=== PATIENT | female | born 1965 | race Caucasian/White ===

== ENCOUNTER 2017-06-16 09:48 | Emergency (ER) | payer MEDICAID, OTHER ==
[~2017-06-16] VITALS: Wt 53.5 kg
[2017-06-16] MEDS ORDERED: AMOX1TAB10 PO (11:09)
[2017-06-16] MEDS ORDERED: HYDR-906 PO (11:09)
[2017-06-16] MEDS ORDERED: CEFTRIAXONE 1 GM INJ IM ONE (11:30)
[2017-06-16] MEDS ORDERED: LIDOCAINE 1% (MDV) 20 ML INJ SC ONE (11:30)
--- NOTE | 2017-07-09 23:49 | ERD ---
ER Documentation Chief Complaint Chief Complaint toothache HPI 51-year-old female complaining of toothache 1 week. Patient states that she is having pain along the jawline is not improving. Denies fever. Denies trouble swallowing. Has not been seen by dentist. Is not taking medications for symptoms. ROS All systems reviewed and are negative except as per history of present illness. Medications Home Meds Active Scripts Hydrocodone/Acetaminophen ([place] 5-325 Tablet) 1 Each Tablet, 1 TAB PO Q6H Y for PAIN, #7 TAB Prov:VANNESSA MADRIGAL PA-C 06/16/17 Amoxicillin/Potassium Clav (Amox-Clav 875-125 mg Tablet) 875-125 mg Tab, 1 TAB PO BID for 7 Days, #14 TAB Prov:VANNESSA MADRIGAL PA-C 06/16/17 Allergies Allergies: Coded Allergies: No Known Allergy (Unverified , 06/16/17) PMhx/Soc Medical and Surgical Hx: pt denies Medical Hx, pt denies Surgical Hx History of Surgery: No Anesthesia Reaction: No Hx Neurological Disorder: No Hx Respiratory Disorders: No Hx Cardiac Disorders: No Hx Psychiatric Problems: No Hx Miscellaneous Medical Probl: No (PT DENIES M/S HX) Hx Alcohol Use: No Hx Substance Use: No Hx Tobacco Use: No Smoking Status: Never smoker Physical Exam Physical Exam GENERAL: The patient is well-appearing, well-nourished, in no acute distress HEENT: Atraumatic. Conjunctivae are pink. Pupils equal, round, and reactive to light. There is no scleral icterus. Tympanic membranes clear bilaterally. Oropharynx clear. No nystagmus or photophobia. Poor dentition throughout. No obvious gum abscess. NECK: C-spine is soft and supple. There is no meningismus. There is no cervical lymphadenopathy. CHEST: Clear to auscultation bilaterally. There are no rales, wheezes or rhonchi. HEART: Regular rate and rhythm. No murmurs, clicks, rubs or gallops. No S3 or S4. Results 24 hrs Current Medications Medications (Trade) Dose Ordered Sig/Frantz Route PRN Reason Start Time Stop Time Status Last Admin Dose Admin Ceftriaxone Sodium (Rocephin) 1 gm ONCE ONCE IM 06/16/17 11:30 06/16/17 11:31 DC 06/16/17 11:36 Lidocaine (Xylocaine 1% (Mdv) 20 ml) 20 ml ONCE ONCE SC 06/16/17 11:30 06/16/17 11:31 DC 06/16/17 11:36 Procedures/MDM MDM: I have low suspicion for deep tracking abscess. Patient does have concerning signs for possible dental abscess by do not feel that there is indication for incision and drainage at this time. Patient's airway is patent and does not appear to be compromised. Patient's vital signs are stable. Patient be discharged with oral antibiotics and pain medication. Patient is told to follow-up with dentist within the next 1-2 days for close evaluation. All questions answered at discharge. Patient was discharged with strict ER precautions. Departure Diagnosis: Primary Impression: Toothache Condition: Stable Patient Instructions: Dental Pain Referrals: [facility] DENT[facility] ([facility] walk in clinic) Additional Instructions: FOLLOW UP WITH YOUR PRIMARY CARE PHYSICIAN TOMORROW.Return to this facility if you are not improving as expected. VANNESSA MADRIGAL PA-C Jul 09, 2017 23:49
--- NOTE | 2017-07-09 23:49 | ERD ---
ER Documentation Chief Complaint Chief Complaint toothache HPI 51-year-old female complaining of toothache 1 week. Patient states that she is having pain along the jawline is not improving. Denies fever. Denies trouble swallowing. Has not been seen by dentist. Is not taking medications for symptoms. ROS All systems reviewed and are negative except as per history of present illness. Medications Home Meds Active Scripts Hydrocodone/Acetaminophen ([place] 5-325 Tablet) 1 Each Tablet, 1 TAB PO Q6H Y for PAIN, #7 TAB Prov:VANNESSA MADRIGAL PA-C 06/16/17 Amoxicillin/Potassium Clav (Amox-Clav 875-125 mg Tablet) 875-125 mg Tab, 1 TAB PO BID for 7 Days, #14 TAB Prov:VANNESSA MADRIGAL PA-C 06/16/17 Allergies Allergies: Coded Allergies: No Known Allergy (Unverified , 06/16/17) PMhx/Soc Medical and Surgical Hx: pt denies Medical Hx, pt denies Surgical Hx History of Surgery: No Anesthesia Reaction: No Hx Neurological Disorder: No Hx Respiratory Disorders: No Hx Cardiac Disorders: No Hx Psychiatric Problems: No Hx Miscellaneous Medical Probl: No (PT DENIES M/S HX) Hx Alcohol Use: No Hx Substance Use: No Hx Tobacco Use: No Smoking Status: Never smoker Physical Exam Physical Exam GENERAL: The patient is well-appearing, well-nourished, in no acute distress HEENT: Atraumatic. Conjunctivae are pink. Pupils equal, round, and reactive to light. There is no scleral icterus. Tympanic membranes clear bilaterally. Oropharynx clear. No nystagmus or photophobia. Poor dentition throughout. No obvious gum abscess. NECK: C-spine is soft and supple. There is no meningismus. There is no cervical lymphadenopathy. CHEST: Clear to auscultation bilaterally. There are no rales, wheezes or rhonchi. HEART: Regular rate and rhythm. No murmurs, clicks, rubs or gallops. No S3 or S4. Results 24 hrs Current Medications Medications (Trade) Dose Ordered Sig/Frantz Route PRN Reason Start Time Stop Time Status Last Admin Dose Admin Ceftriaxone Sodium (Rocephin) 1 gm ONCE ONCE IM 06/16/17 11:30 06/16/17 11:31 DC 06/16/17 11:36 Lidocaine (Xylocaine 1% (Mdv) 20 ml) 20 ml ONCE ONCE SC 06/16/17 11:30 06/16/17 11:31 DC 06/16/17 11:36 Procedures/MDM MDM: I have low suspicion for deep tracking abscess. Patient does have concerning signs for possible dental abscess by do not feel that there is indication for incision and drainage at this time. Patient's airway is patent and does not appear to be compromised. Patient's vital signs are stable. Patient be discharged with oral antibiotics and pain medication. Patient is told to follow-up with dentist within the next 1-2 days for close evaluation. All questions answered at discharge. Patient was discharged with strict ER precautions. Departure Diagnosis: Primary Impression: Toothache Condition: Stable Patient Instructions: Dental Pain Referrals: [facility] DENT[facility] ([facility] walk in clinic) Additional Instructions: FOLLOW UP WITH YOUR PRIMARY CARE PHYSICIAN TOMORROW.Return to this facility if you are not improving as expected. VANNESSA MADRIGAL PA-C Jul 09, 2017 23:49
--- NOTE | 2017-07-09 23:49 | ERD ---
ER Documentation Chief Complaint Chief Complaint toothache HPI 51-year-old female complaining of toothache 1 week. Patient states that she is having pain along the jawline is not improving. Denies fever. Denies trouble swallowing. Has not been seen by dentist. Is not taking medications for symptoms. ROS All systems reviewed and are negative except as per history of present illness. Medications Home Meds Active Scripts Hydrocodone/Acetaminophen ([place] 5-325 Tablet) 1 Each Tablet, 1 TAB PO Q6H Y for PAIN, #7 TAB Prov:VANNESSA MADRIGAL PA-C 06/16/17 Amoxicillin/Potassium Clav (Amox-Clav 875-125 mg Tablet) 875-125 mg Tab, 1 TAB PO BID for 7 Days, #14 TAB Prov:VANNESSA MADRIGAL PA-C 06/16/17 Allergies Allergies: Coded Allergies: No Known Allergy (Unverified , 06/16/17) PMhx/Soc Medical and Surgical Hx: pt denies Medical Hx, pt denies Surgical Hx History of Surgery: No Anesthesia Reaction: No Hx Neurological Disorder: No Hx Respiratory Disorders: No Hx Cardiac Disorders: No Hx Psychiatric Problems: No Hx Miscellaneous Medical Probl: No (PT DENIES M/S HX) Hx Alcohol Use: No Hx Substance Use: No Hx Tobacco Use: No Smoking Status: Never smoker Physical Exam Physical Exam GENERAL: The patient is well-appearing, well-nourished, in no acute distress HEENT: Atraumatic. Conjunctivae are pink. Pupils equal, round, and reactive to light. There is no scleral icterus. Tympanic membranes clear bilaterally. Oropharynx clear. No nystagmus or photophobia. Poor dentition throughout. No obvious gum abscess. NECK: C-spine is soft and supple. There is no meningismus. There is no cervical lymphadenopathy. CHEST: Clear to auscultation bilaterally. There are no rales, wheezes or rhonchi. HEART: Regular rate and rhythm. No murmurs, clicks, rubs or gallops. No S3 or S4. Results 24 hrs Current Medications Medications (Trade) Dose Ordered Sig/Frantz Route PRN Reason Start Time Stop Time Status Last Admin Dose Admin Ceftriaxone Sodium (Rocephin) 1 gm ONCE ONCE IM 06/16/17 11:30 06/16/17 11:31 DC 06/16/17 11:36 Lidocaine (Xylocaine 1% (Mdv) 20 ml) 20 ml ONCE ONCE SC 06/16/17 11:30 06/16/17 11:31 DC 06/16/17 11:36 Procedures/MDM MDM: I have low suspicion for deep tracking abscess. Patient does have concerning signs for possible dental abscess by do not feel that there is indication for incision and drainage at this time. Patient's airway is patent and does not appear to be compromised. Patient's vital signs are stable. Patient be discharged with oral antibiotics and pain medication. Patient is told to follow-up with dentist within the next 1-2 days for close evaluation. All questions answered at discharge. Patient was discharged with strict ER precautions. Departure Diagnosis: Primary Impression: Toothache Condition: Stable Patient Instructions: Dental Pain Referrals: [facility] DENTIST ([facility] walk in clinic) Additional Instructions: FOLLOW UP WITH YOUR PRIMARY CARE PHYSICIAN TOMORROW.Return to this facility if you are not improving as expected. VANNESSA MADRIGAL PA-C Jul 09, 2017 23:49
== END 2017-06-16 12:00 | disposition home or self-care (01) ==
LOC: FTE 09:48
DX: K08.89 Other specified disorders of teeth and supporting structures (principal)
CPT/HCPCS: 96372; J0696; Z7502